=== PATIENT | female | born 1970 | race Caucasian/White ===

== ENCOUNTER → 2016-08-02 | Outpatient (CLI) | payer BC ==
[2014-08-28 12:56] VITALS: BP 116/57
--- NOTE | 2016-08-02 16:59 | KCIC ---
PROCEDURE Bilateral digital mammogram with CAD HISTORY Routine screening TECHNIQUE Bilateral digital routine views were obtained with computer-aided detection. COMPARISON none FINDINGS Density D: Predominantly dense ffibroglandular tissue. There is no suspicious mass, calcifications or areas of architectural distortion. IMPRESSION No suspicious findings. [Recommend routine screening mammography in one year.] The breast tissue is dense. Mammography is less sensitive for abnormalities in areas of dense tissue. This study was interpreted with the benefit of Computerized Aided Detection (CAD). Mammography is not 100% sensitive in detecting breast cancer. Therefore, a self breast exam and a clinical breast exam are very important. A negative mammogram does not negate a clinically suspicious finding and should not result in a delay in biopsying a clinically suspicious abnormality. BI-RADS category 1: Negative. Electronically signed by: Deep Iqbal MD (Aug 02, 2016 16:58:26)
== END | disposition home or self-care (01) ==
LOC: KCIC MAMMO 15:37
PROVIDERS: ATTEND Obstetrics & Gynecology
DX: Z12.31 Encounter for screening mammogram for malignant neoplasm of breast (principal)
CPT/HCPCS: G0202; 77067

== ENCOUNTER 2017-01-16 15:22 | Emergency (ER) | payer BC ==
[~2017-01-16] VITALS: Ht 160 cm; Wt 61.2 kg
[2017-01-16 15:30] VITALS: BP 144/60
[2017-01-16] MEDS ORDERED: NITR100C62 PO (15:50)
--- NOTE | 2017-01-16 15:50 | PHYS DOC ---
Past Medical History Past Medical History: Ovarian Cyst Past Surgical History: Hysterectomy, Tubal ligation Additional Past Surgical Histo: CYST REMOVED ON OVARIES Alcohol Use: Occasionally Drug Use: None Adult General Chief Complaint Chief Complaint: PAIN ON URINATION HPI HPI Patient is a 46 year old female presents to the emergency department stating that she's had a 3 day history of frequency urgency and pain with urination. She states that she thinks she had a fever today however did not take her temperature. She continues to state that she has a nausea feeling although has not vomited. Patient denies any vaginal discharge denies any diarrhea. Review of Systems Review of Systems Constitutional: Denies fever or chills [] Eyes: Denies change in visual acuity, redness, or eye pain [] HENT: Denies nasal congestion or sore throat [] Respiratory: Denies cough or shortness of breath [] Cardiovascular: No additional information not addressed in HPI [] GI: Denies abdominal pain, nausea, vomiting, bloody stools or diarrhea [] : dysuria denies hematuria [] Musculoskeletal: Denies back pain or joint pain [] Integument: Denies rash or skin lesions [] Neurologic: Denies headache, focal weakness or sensory changes [] Endocrine: Denies polyuria or polydipsia [] Allergies Allergies Allergies Coded Allergies Type Severity Reaction Last Updated Verified No Known Drug Allergies 05/26/13 No Physical Exam Physical Exam Constitutional: Well developed, well nourished, no acute distress, non-toxic appearance. [] HENT: Normocephalic, atraumatic, bilateral external ears normal, oropharynx moist, no oral exudates, nose normal. [] Eyes: PERRLA, EOMI, conjunctiva normal, no discharge. [] Neck: Normal range of motion, no tenderness, supple, no stridor. [] Cardiovascular:Heart rate regular rhythm, no murmur [] Lungs & Thorax: Bilateral breath sounds clear to auscultation [] Skin: Warm, dry, no erythema, no rash. [] Back: No tenderness, no CVA tenderness. [] Extremities: No tenderness, no cyanosis, no clubbing, ROM intact, no edema. [] Neurologic: Alert and oriented X 3, normal motor function, normal sensory function, no focal deficits noted. [] Psychologic: Affect normal, judgement normal, mood normal. [] Current Patient Data Vital Signs Vital Signs Date Time Temp Pulse Resp B/P (MAP) Pulse Ox O2 Delivery O2 Flow Rate FiO2 01/16/17 15:30 97.9 83 18 99 Room Air 97.9 Lab Values Laboratory Tests Test 01/16/17 15:35 Urine Collection Type Unknown Urine Color Yellow Urine Clarity Cloudy Urine pH 6.5 Urine Specific [place] >=1.030 Urine Protein 30 mg/dL (NEG-TRACE) Urine Glucose (UA) Negative mg/dL (NEG) Urine Ketones (Stick) Negative mg/dL (NEG) Urine Blood Moderate (NEG) Urine Nitrite Positive (NEG) Urine Bilirubin Negative (NEG) Urine Urobilinogen Dipstick 1.0 mg/dL (0.2 mg/dL) Urine Leukocyte Esterase Large (NEG) Urine RBC 6-10 /HPF (0-2) Urine WBC >40 /HPF (0-4) Urine Squamous Epithelial Cells Mod /LPF Urine Transitional Epithelial Cells Mod /LPF Urine Bacteria Many /HPF (0-FEW) Urine Mucus Mod /LPF EKG EKG [] Radiology/Procedures Radiology/Procedures [] Course & Med Decision Making Course & Med Decision Making Pertinent Labs and Imaging studies reviewed. (See chart for details) urine positive for UTI patient will be discharged home on Macrobid. Recommended plenty of fluids such as water and cranberry juice. Recommended she avoid cranberry juice cocktail, carbonated beverages, citrus fruits, alcohol, caffeine as these are all considered irritants to the bladder. Patient agrees with discharge instructions, treatment regimens and follow-up recommendations. Patient will be discharged home in stable condition with recommendations to follow-up with a primary care physician in the next 7-10 days. Patient agrees with discharge instructions treatment regimens and follow-up recommendations. All concerns and questions have been answered at the patient's bedside. [] Dragon Disclaimer Dragon Disclaimer This electronic medical record was generated, in whole or in part, using a voice recognition dictation system. Departure Departure Impression: Primary Impression: UTI (lower urinary tract infection) Disposition: 01 HOME, SELF-CARE Condition: STABLE Referrals: NO PCP (PCP) Patient Instructions: Urinary Tract Infection, [id number] Additional Instructions: Activity as tolerated. Drink plenty of fluids; such as cranberry juice and water. Avoid cranberry juice cocktail, carbonate beverages, citrus fruits, alcohol, and caffeine as these are considered irritants to the bladder. Medication as prescribed. Follow-up to primary care physician in the next 7-10 days to make sure you cleared the infection. Return back to emergency department as needed for sign symptoms of become worse. Scripts Nitrofurantoin Monohyd/M-Cryst (MACROBID 100 MG CAPSULE) 100 Mg Capsule 1 CAP PO BID, #14 CAP Prov: THERESE LEZAMA APRN 01/16/17 THERESE LEZAMA APRN Jan 16, 2017 15:50
[2017-01-16 15:53] LABS: BILIRUBIN,URINE NEGATIVE (NEG); GLUCOSE,URINE NEGATIVE (NEG); NITRITE,URINE POSITIVE (NEG); PH,URINE 6.5; PROTEIN,URINE 30 mg/dL (NEG-TRACE)
[2017-01-16 16:11] LABS: BACTERIA,URINE MANY /HPF (0-FEW); WBC,URINE >40 /HPF (0-4)
[2017-01-16 16:12] LABS: SQUAMOUS EPITHELIAL CELL,UR MOD /LPF
== END 2017-01-16 16:15 | disposition home or self-care (01) ==
LOC: ER 15:22
DX: N39.0 Urinary tract infection, site not specified (principal); Z90.710 Acquired absence of both cervix and uterus; Z98.51 Tubal ligation status
CPT/HCPCS: 81001; 87086; 99284

== ENCOUNTER 2020-09-11 08:46 | Emergency (ER) | payer BC ==
[~2020-09-11] VITALS: Ht 160 cm; Wt 65.9 kg
[~2020-09-11 08:46] MED LIST: NITR100C62 PO
[2020-09-11 09:04] VITALS: BP 129/60
--- NOTE | 2020-09-11 09:37 | PHYS DOC ---
Past Medical History Past Medical History: No Pertinent History, Ovarian Cyst Past Surgical History: Hysterectomy, Tubal ligation Additional Past Surgical Histo: CYST REMOVED ON OVARIES Smoking Status: Current Every Day Smoker Additional Information: 1 PPD Alcohol Use: Occasionally Drug Use: None General Adult EDM: Chief Complaint: LOWEREXTREMITY INJURY HPI: HPI: 50-year-old female with no significant past medical history presents the ED with complaints of right heel pain after patient landed on her heel last night, fall from approximately 2 feet. Does report she was drinking alcohol when she was running away from someone, did not see the ledge and quickly jumped down two feet (landing on both feet flat footed). Denies any prior injury to this joint. Possible abx for uti in past year-unsure if she was prescribed before:. Reports pain with weightbearing to the right leg. Denies any pain to the right knee, low back/lumbar midline back or right hip. Did not hit her head of consciousness. Review of Systems: Review of Systems: Constitutional: Denies fever or chills. [] Eyes: Denies change in visual acuity. [] HENT: Denies nasal congestion or sore throat. [] Respiratory: Denies cough or shortness of breath. [] Cardiovascular: Denies chest pain or edema. [] GI: Denies nausea, vomiting, or diarrhea. [] : Denies hip pain or saddle anesthesia Musculoskeletal: Denies back pain or cva ttp Integument: Denies rash or diaphoresis Neurologic: Denies headache, focal weakness or sensory changes. [] Psychiatric: Denies depression or anxiety. [] Heart Score: C/O Chest Pain: No Risk Factors: Risk Factors: DM, Current or recent (<one month) smoker, HTN, HLP, family history of CAD, obesity. Risk Scores: Score 0 - 3: 2.5% MACE over next 6 weeks - Discharge Home Score 4 - 6: 20.3% MACE over next 6 weeks - Admit for Clinical Observation Score 7 - 10: 72.7% MACE over next 6 weeks - Early Invasive Strategies Allergies: Allergies: Allergies Coded Allergies Type Severity Reaction Last Updated Verified No Known Drug Allergies 05/26/13 No Physical Exam: PE: Constitutional: Well developed, well nourished, no acute distress, non-toxic appearance. HENT: Normocephalic, atraumatic, Eyes: EOMI, conjunctiva normal, no discharge. Neck: Normal range of motion, supple, Cardiovascular: S1/2 present, regular rhythm Lungs & Thorax: Speaking in full sentences, bilateral equal chest rise, no tachypnea or increased work of breathing Skin: Warm, dry, no erythema, no rash. [] Back: No midline tenderness, no CVA tenderness. [] Extremities: no cyanosis, no lower extremity edema, tenderness at plantar aspect of calcaneus, no ecchymosis petechiae, Figueroa test negative, butterfly tattoo over right dorsal foot, able to dorsiflex and plantarflex, no ttp over right knee/fibular head, dp/pt pulses intact bilaterally, cap refill less than 1 second, skin turgor normal Neurologic: Alert and oriented X 3, normal motor function, normal sensory function, no focal deficits noted. [] Psychologic: Affect normal, judgement normal, mood normal. [] Current Patient Data: Vital Signs: Vital Signs Date Time Temp Pulse Resp B/P (MAP) Pulse Ox O2 Delivery O2 Flow Rate FiO2 09/11/20 09:04 97.9 98 17 129/60 (83) 97 Room Air 97.9 EKG: EKG: [] Radiology/Procedures: Radiology/Procedures: IMAGING REPORT Signed PATIENT: MARÍA ELENA BULLOCK LACCOUNT: [id number] : 1970 LOCATION: ER AGE: 50 SEX: F EXAM STATUS: REG ER ORD. PHYSICIAN: ZAHRA NARANJO DO REASON: heel pain PROCEDURE: FOOT RIGHT 3V Study: 1. XR EXAM OF ANKLE_RIGHT 3VIEWS 2. XR FOOT_RIGHT 3 VIEWS 3. XR RT TIBIA+FIBULA Indication: Heel/ankle and lower leg pain. Comparison: None. Findings: Right tibia/fibula: No acute fracture or radiographic evidence for stress injury of the tibia or fibula. Facet arthrosis at the partially assessed knee. The soft tissues are within normal limits. Right ankle: No acute fracture. Alignment is within normal limits. Maintained ankle joint space. Right foot: No acute fracture. Alignment is within normal limits. Plantar calcaneal spur. Impression: Right tibia/fibula; right ankle; right foot: 1. No acute fracture or malalignment. No radiographic evidence for stress injury noting that MRI would be more sensitive if there is concern based off patient history. 2. Maintained joint spaces without significant arthrosis. 3. Plantar calcaneal spur. Electronically signed by: BREONNA RUBIO MD (09/11/2020 10:35 AM) [facility] DICTATED and SIGNED BY: BREONNA RUBIO MD DATE: 09/11/20 [id number] 0 Course & Med Decision Making: Course & Med Decision Making Pertinent Labs and Imaging studies reviewed. (See chart for details) Concern for likely calcaneal contusion/sprain w/heel spur, cannot exclude achilles tendon injury although pt is able to planter flex/dorsiflex. Recommend rice instructions with [id number] analgesia. Crutches and splint or surgical boot recommended. Will discharge home with strict ED return precautions were given for severe pain, neurologic deficits, skin color changes or repeat injury. Encouraged urgent outpatient follow-up with PMD and orthopedic surgery for definitive management. Life-threatening processes were considered but are low suspicion at this time, given history, physical exam and ED workup. Pt was educated on all prescription medications and adverse effects. All patient's questions were answered and pt was stable at time of discharge. Life/limb-threatening differential includes but is not limited to, avascular necrosis, septic arthritis, malignancy, compartment syndrome, fracture/l igamentous injury/overuse, decompression sickness, seronegative spondyloarthropathies, trauma including dislocation/fracture, Lyme disease, lupus, arthritis differentials, gout/pseudogout or decompression sickness. I spoken with the patient and her caregivers. I explained the patient's condition, diagnoses and treatment plan based on the information available to me at this time. I have answered the patient and her caregiver's questions and addressed any concerns. The patient and her caregivers have a good understanding of patient's diagnosis, condition and treatment plan as can be expected at this point. Vital signs have been stable. Patient's condition is stable and appropriate for discharge from the emergency department. Patient will pursue further outpatient evaluation with primary care physician or other designated or consulting physician as outlined in the discharge ins tructions. The patient and/or caregivers are agreeable to this plan of care and follow-up instructions have been explained in detail. The patient and/or caregivers have received these instructions in written form and have expressed an understanding of the discharge instructions. The patient and/or caregivers are aware that any significant change of condition or worsening of symptoms should prompt immediate return to this or the closest emergency department or call to 1Lorrie Gonsalves Disclaimer: Brina Disclaimer: This electronic medical record was generated, in whole or in part, using a voice recognition dictation system. Departure Departure Impression: Primary Impression: Ankle pain, right Additional Impression: Calcaneal spur of right foot Disposition: HOME / SELF CARE / HOMELESS Condition: STABLE Referrals: NO PCP (PCP) w/pcp for routine care or FOLLOW UP WITH FAMILY MEDICINE: [address] [place] [address] Patient Instructions: Ankle Pain, Heel Spur, RICE - Routine Care for Injuries Additional Instructions: FOLLOW UP WITH ORTHOPEDICS: For definitive management of right ankle pain/calcaneal heel spur Orthopaedic Sports Medicine Orthopaedic Surgery [facility] [address] [place], [address] [place] [address] OR [facility] [address] [place] [address] EMERGENCY DEPARTMENT GENERAL DISCHARGE INSTRUCTIONS Thank you for coming to [facility] Emergency Department (ED) indira yates and trusting us with you care. We trust that you had a positive experience in our Emergency Department. If you wish to speak to the department management, you may call the Director at [phone]. YOUR FOLLOW UP INSTRUCTIONS ARE FOLLOWS: 1. Do you have a private Doctor? If you do not have a private doctor, please ask for a resource list of physicians or clinics that may be able to assist you with follow up care. 2. The Emergency Physicain has interpreted your x-rays. The X-Ray specialist will also review them. If there is a change in the findings, you will be notified in 48 hours when at all possible. 3. A lab test or culture has been done, your results will be reviewed and you will be notified if you need a change in treatment. ADDITIONAL INSTRUCTIONS AND INFORMATION: 1. Your care today has been supervised by a physician who is specially trained in emergency care. Many problems require more than one evaluation for a complete diagnosis and treatment. We recommend that you schedule your follow up appointment as recommended to ensure complete treatment of you illness or injury. If you are unable to obtain follow up care and continue to have a problem, or if your condition worsens, we recommend that you return to the ED. 2. We are not able to safely determine your condition over the phone nor are we able to give sound medical advice over the phone. For these safety reasons, if you call for medical advice we will ask you to come to the ED for further evaluation. 3. If you have any questions regarding these discharge instructions please call the ED at [phone]. SAFETY INFORMATION: In the interest of safety, wellness, and injury prevention; we encourage you to wear your sealbelt, if you smoke; quite smoking, and we encourage family to use a protective helmet for bicycling and other sporting events that present an increased risk for head injury. IF YOUR SYMPTOMS WORSEN OR NEW SYMPTOMS DEVELOP, OR YOU HAVE CONCERNS ABOUT YOUR CONDITION; OR IF YOUR CONDITION WORSENS WHILE YOU ARE WAITING FOR YOUR FOLLOW UP APPOINTMENT; EITHER CONTACT YOUR PRIMARY CARE DOCTOR, THE PHYSICIAN WHOSE NAME AND NUMBER YOU WERE GIVEN, OR RETURN TO THE ED IMMEDIATELY. ZAHRA NARANJO DO September 11, 2020 09:37
--- NOTE | 2020-09-11 10:37 | RAD ---
Study: 1. XR EXAM OF ANKLE_RIGHT 3VIEWS 2. XR FOOT_RIGHT 3 VIEWS 3. XR RT TIBIA+FIBULA Indication: Heel/ankle and lower leg pain. Comparison: None. Findings: Right tibia/fibula: No acute fracture or radiographic evidence for stress injury of the tibia or fibula. Facet arthrosis at the partially assessed knee. The soft tissues are within normal limits. Right ankle: No acute fracture. Alignment is within normal limits. Maintained ankle joint space. Right foot: No acute fracture. Alignment is within normal limits. Plantar calcaneal spur. Impression: Right tibia/fibula; right ankle; right foot: 1. No acute fracture or malalignment. No radiographic evidence for stress injury noting that MRI woul d be more sensitive if there is concern based off patient history. 2. Maintained joint spaces without significant arthrosis. 3. Plantar calcaneal spur. Electronically signed by: BREONNA RUBIO MD (09/11/2020 10:35 AM) [facility]
== END 2020-09-11 11:50 | disposition home or self-care (01) ==
LOC: ER 08:46
DX: M77.31 Calcaneal spur, right foot (principal); F17.200 Nicotine dependence, unspecified, uncomplicated; W18.39XA Other fall on same level, initial encounter; Y93.02 Activity, running; Y92.89 Other specified places as the place of occurrence of the external cause; Y99.8 Other external cause status
CPT/HCPCS: 73590; 73610; 73630; 99284

== ENCOUNTER 2021-02-26 09:33 | Emergency (ER) | payer BC ==
[~2021-02-26] VITALS: Ht 160 cm; Wt 64.3 kg
--- NOTE | 2021-02-26 10:59 | RAD ---
EXAM: Chest, single view. HISTORY: Cough. COMPARISON: None. FINDINGS: A frontal view of the chest is obtained. There is no infiltrate, pleural effusion or pneumo thorax. The heart is normal in size. There are a few calcified granulomas. IMPRESSION: No acute pulmonary finding. Electronically signed by: Radha Stover MD (02/26/2021 10:57 AM) [id number]
--- NOTE | 2021-02-26 11:04 | PHYS DOC ---
Past Medical History Past Medical History: No Pertinent History, Ovarian Cyst Past Surgical History: Hysterectomy, Tubal ligation Additional Past Surgical Histo: CYST REMOVED ON OVARIES Smoking Status: Current Every Day Smoker Additional Information: 1 PPD Alcohol Use: Occasionally Drug Use: None General Adult EDM: Chief Complaint: COUGH HPI: HPI: 50-year-old female past medical history of tobacco use, presents to the ED with complaints of subjective fevers and chills with nonproductive cough for the past 2 days. Is not vaccinated for Covid. Reports she had a negative Covid test on Friday (3 days ago). No relief with tylenol cold and flu. States she was up all night coughing. Review of Systems: Review of Systems: Constitutional: Denies lack of taste or smell Eyes: Denies change in visual acuity. [] HENT: Denies nasal congestion or sore throat. [] Respiratory: Denies hemoptysis or shortness of breath. [] Cardiovascular: Denies chest pain or edema. [] GI: Denies nausea or vomiting : Denies dysuria or vaginal bleeding Musculoskeletal: Denies back pain or joint pain. [] Integument: Denies rash or diaphoresis Neurologic: Denies headache, focal weakness or sensory changes. [] Endocrine: Denies polyuria or polydipsia. [] Lymphatic: Denies swollen glands. [] Psychiatric: Denies depression or anxiety. [] Heart Score: C/O Chest Pain: No Risk Factors: Risk Factors: DM, Current or recent (<one month) smoker, HTN, HLP, family history of CAD, obesity. Risk Scores: Score 0 - 3: 2.5% MACE over next 6 weeks - Discharge Home Score 4 - 6: 20.3% MACE over next 6 weeks - Admit for Clinical Observation Score 7 - 10: 72.7% MACE over next 6 weeks - Early Invasive Strategies Allergies: Allergies: Allergies Coded Allergies Type Severity Reaction Last Updated Verified No Known Drug Allergies 05/26/13 No Physical Exam: PE: Constitutional: Well developed, well nourished, no acute distress, non-toxic appearance. HENT: Normocephalic, atraumatic, Eyes: EOMI, conjunctiva normal, no discharge. Neck: Normal range of motion, supple, Cardiovascular: S1/2 present, regular rhythm Lungs & Thorax: Speaking in full sentences, bilateral equal chest rise, no tachypnea or increased work of breathing Abdomen: soft, no tenderness, Skin: Warm, dry, no erythema, no rash. [] Extremities: No tenderness, no cyanosis, no lower extremity edema Neurologic: Alert and oriented X 3, normal motor function, normal sensory function, no focal deficits noted. [] Psychologic: Affect normal, judgement normal, mood normal. [] Current Patient Data: Labs: Laboratory Tests Test 02/26/21 10:10 SARS-CoV-2 Antigen (Rapid) Negative (NEGATIVE) Vital Signs: Vital Signs Date Time Temp Pulse Resp B/P (MAP) Pulse Ox O2 Delivery O2 Flow Rate FiO2 02/26/21 10:15 71 20 132/61 (84) 97 Room Air 02/26/21 09:56 98.1 98.1 EKG: EKG: [] Radiology/Procedures: Radiology/Procedures: IMAGING REPORT Signed PATIENT: MARÍA ELENA BULLOCK LACCOUNT: [id number] : 1970 LOCATION: ER AGE: 50 SEX: F EXAM STATUS: PRE ER ORD. PHYSICIAN: ZAHRA NARANJO DO REASON: cough PROCEDURE: CHEST AP ONLY EXAM: Chest, single view. HISTORY: Cough. COMPARISON: None. FINDINGS: A frontal view of the chest is obtained. There is no infiltrate, pleural effusion or pneumothorax. The heart is normal in size. There are a few calcified granulomas. IMPRESSION: No acute pulmonary finding. Electronically signed by: Radha Fink MD (02/26/2021 10:57 AM) [id number] DICTATED and SIGNED BY: RADHA FINK MD DATE: 02/26/21 [id number] 0 Course & Med Decision Making: Course & Med Decision Making Pertinent Labs and Imaging studies reviewed. (See chart for details) COVID-19 CRITERIA: The patient was evaluated during the global COVID-19 pandemic, and that diagnosis was suspected/considered upon their initial presentation. Their evaluation, treatment and testing was consistent with current guidelines for patients who present with complaints or symptoms that may be related to COVID-19. Concern for dry cough for the past 2 days. Rapid Covid and flu negative. Remarkable chest x-ray. Recommend supportive measures. Will discharge home with strict ED return precautions were given for increased work of breathing, shortness of breath hemoptysis, chest pain or syncope. Encouraged urgent outpatient follow-up with PMD for repeat evaluation. Life-threatening processes were considered but are low suspicion at this time, given history, physical exam and ED workup. Pt was educated on all prescription medications and adverse effects. All patient's questions were answered and pt was stable at time of discharge. Life/limb-threatening differential includes but is not limited to, airway emergency or respiratory distress/ARDS or fatigue or head or neck swelling, toxidrome, sepsis/shock, angioedema, anaphylaxis, congestive heart failure, myocarditis, acute myocardial infarction, dysrhythmias, cardiomyopathy, venous thromboembolism, pulmonary emboli, acute necrotizing hemorrhagic encephalopathy ,cerebral venous thrombosis, meningitis, encephalitis or CVA. I have spoken with the patient and/or caregivers. I explained the patient's condition, diagnoses and treatment plan based on the information available to me at this time. I have answered the patient and/or caregiver's questions and addressed any concerns. The patient and/or caregivers have a good understanding of patient's diagnosis, condition and treatment plan as can be expected at this point. Vital signs have been stable. Patient's condition is stable and appropriate for discharge from the emergency department. Patient will pursue further outpatient evaluation with primary care physician or other designated or consulting physician as outlined in the discharge instructions. The patient and/or caregivers are agreeable to this plan of care and follow-up instructions have been explained in detail. The patient and/or caregivers have received these instructions in written form and have expressed an understanding of the discharge instructions. The patient and/or caregivers are aware that any significant change of condition or worsening of symptoms should prompt immediate return to this or the closest emergency department or call to 911. Brina Disclaimer: Brina Disclaimer: This electronic medical record was generated, in whole or in part, using a voice recognition dictation system. Departure Departure Impression: Primary Impression: Person under investigation for COVID-19 Additional Impression: Cough Disposition: 01 HOME / SELF CARE / HOMELESS Condition: STABLE Referrals: NO PCP (PCP) Follow-up with your primary care physician in 24 to 48 hours OR FOLLOW UP WITH FAMILY MEDICINE: [address], [address] [place] [address] Patient Instructions: Cough, Adult, Upper Respiratory Infection, Adult Additional Instructions: Return to ED immediately if your oxygen level drops below 90% (purchase a pulse oximetry at a medical supply store), difficulties breathing including rapid breathing or increased work of breathing (skin sucking under ribs), chest pain or stroke-like symptoms (facial droop, speech changes, arm/leg weakness). You have been tested for or diagnosed with COVID-19. It is an infection caused by a new type of coronavirus. COVID-19 will cause cold-like or mild flu symptoms in most. It can cause more severe symptoms like problems breathing in some. There is no treatment for COVID-19. The body will clear the infection over time. Self-care will help to ease discomfort. Steps to Take: Self-Care Rest as needed. Healthy habits may help you feel better. Steps include: Choose healthy foods including fruits and vegetables. Drink water throughout the day. Get plenty of sleep each night. If you smoke, try to quit. It may ease breathing. Avoid alcohol. Keep Others Healthy The virus can spread to others. Droplets are released every time you sneeze or cough. The droplets can get into the mouth, nose, or eyes of people near you and lead to infection. To lower the chances of spreading COVID-19 to others: Stay at home until your doctor has said it is safe to leave. If you tested positive this will mean staying isolated until both of the following are true: At least 7 days have passed since the start of illness. You are free of fever for at least 72 hours without the use of medicine. During this time: - Avoid public areas, events, or transportation. Do not return to work or school until your doctor has said it is safe to do so. - Call ahead if you need to go to a medical center. Let them know you may have COVID-19. It will help them guide you where to go. They may also ask you to wear a facemask when you come to the office. - If you call for emergency medical services, let them know you may have COVID- 19. While at home: - Try to avoid close contact with others. Stay about 6 feet away. - If possible, spend most of your time in a separate room from others. - Use a face mask if you will be in close contact with others such as sharing a room or vehicle. - Have someone wipe down common surfaces in the home. Use household numerical control operator every day on areas like doorknobs, counters, or sinks. - Cough or sneeze into a tissue. Throw the tissue away right after use. If a tissue is not available, cough or sneeze into your elbow. - Wash your hands often. Wash them after sneezing or coughing. Use soap and water and wash for at least 20 seconds. Alcohol based hand vacuum cleaner operator can be used if soap and water is not available. - Do not prepare food for others. Avoid sharing personal items like forks, spoo ns, or toothbrushes. - Avoid close contact with pets while you are sick. There is no evidence of the virus passing to pets. This is a safety step until more is known about this virus. Isolation can be frustrating. Social interaction can help. Keep in touch with friends and family through phone and tech options. You can still interact with others in your home, just keep a safe distance of about 6 feet. Follow-up: Your doctors office will check in with you to see if there are any changes in your health. You may be asked to keep track of symptoms to share with them. They will also let you know when you are clear to be in public again. Problems to Look Out For: Contact your doctor if your recovery is not going as you expect. Get emergency care if you have problems such as: - Trouble breathing - Nonstop chest pain or pressure - Changes in awareness, confusion, or problems waking - Lips or face have bluish color - Worsening of symptoms If you think you have an emergency, call for emergency medical services right away. As taken from [facility] Benzonatate (BENZONATATE) 200 Mg Capsule 1 CAP PO PRN TID PRN for cough for 7 Days, #21 CAP 0 Refills Prov: ZAHRA NARANJO DO 02/26/21 ZAHRA NARANJO DO Feb 26, 2021 11:04
[2021-02-26 11:22] LABS: INFLUENZA A PATIENT NEGATIVE (NEGATIVE); INFLUENZA B PATIENT NEGATIVE (NEGATIVE)
[2021-02-26] MEDS ORDERED: BENZ200C47 PO (12:07)
[2021-02-26 12:14] VITALS: BP 117/59
--- NOTE | 2021-02-27 16:54 | NUR ---
IP: Informed pt of negative covid test. Pt verbalized understanding.
== END 2021-02-26 12:35 | disposition home or self-care (01) ==
LOC: ER 09:33
DX: R05.9 Cough, unspecified (principal); Z20.822 Contact with and (suspected) exposure to COVID-19; R50.9 Fever, unspecified; F17.200 Nicotine dependence, unspecified, uncomplicated
CPT/HCPCS: 71045; 87426; 87804; 99285; U0003; U0005